=== PATIENT | male | born 1995 | race Two or more races ===

== ENCOUNTER 2016-11-25 14:51 | Emergency (ER) | payer MEDICAID ==
[2016-11-25 15:18] VITALS: BP 120/73
--- NOTE | 2016-11-25 15:56 | ER Document Report ---
HPI - HPI Pain Level: 5 Notes: Patient is a 21-year-old male who presents the ED for a wound recheck status post incision and drainage and packing 2 days ago by an outside provider. Patient states that he has yet to fill the antibiotic that he was prescribed. Patient states that he has noticed continued discharge from the site. He has been putting new wound dressings on there daily. The pain does not radiate otherwise. Patient is not sure if the area is improving or not. He has not noticed any red streaks. Denies any headache, fever, URI, sore throat, chest pain, palpitations, syncope, cough, shortness of breath, wheeze, dyspnea, abdominal pain, nausea/vomiting/diarrhea, urinary retention, dysuria. Patient denies any drug allergies or other significant past medical history. Denies any history of MRSA. - ROS Notes: REVIEW OF SYSTEMS: CONSTITUTIONAL : Denies fever, chills, or sweats. Denies recent illness. EENT: Denies eye, ear, throat, or mouth pain or symptoms. Denies nasal or sinus congestion or discharge. Denies throat, tongue, or mouth swelling or difficulty swallowing. CARDIOVASCULAR: Denies chest pain. Denies palpitations or racing or irregular heart beat. Denies ankle edema. RESPIRATORY: Denies cough, cold, or chest congestion. Denies shortness of breath, difficulty breathing, or wheezing. GASTROINTESTINAL: Denies abdominal pain or distention. Denies nausea, vomiting , or diarrhea. Denies blood in vomitus, stools, or per rectum. Denies black, tarry stools. Denies constipation. GENITOURINARY: Denies difficulty urinating, painful urination, burning, frequency, blood in urine, or discharge. MUSCULOSKELETAL: Denies back or neck pain or stiffness. Denies joint pain or swelling. SKIN: see hpi NEUROLOGICAL: Denies confusion or altered mental status. Denies passing out or loss of consciousness. Denies dizziness or lightheadedness. Denies headache. Denies weakness or paralysis or loss of use of either side. Denies problems with gait or speech. Denies sensory loss, numbness, or tingling. ALL OTHER SYSTEMS REVIEWED AND NEGATIVE. Dictation was performed using [employer] voice recognition software - DERM Skin Color: Normal Past Medical History - General Information source: Patient - Social History Smoking Status: Unknown if Ever Smoked Family History: None Patient has suicidal ideation: No Patient has homicidal ideation: No Renal/ Medical History: Denies: Hx Peritoneal Dialysis Vertical Provider Document - CONSTITUTIONAL Agree With Documented VS: Yes Notes: PHYSICAL EXAMINATION: GENERAL: Well-appearing, well-nourished and in no acute distress. LUNGS: Breath sounds clear to auscultation bilaterally and equal. No wheezes rales or rhonchi. HEART: Regular rate and rhythm without murmurs, rubs, gallops. Musculoskeletal: LE's b/l: FROM to passive/active. Strength 5+/5. Extremities: No cyanosis, clubbing, or edema b/l. Peripheral pulses 2+. Capillary refill less than 3 seconds. NEUROLOGICAL: Normal speech, normal gait. Normal sensory, motor exams PSYCH: Normal mood, normal affect. SKIN: Large open abscess (s/p I&D) to the rt lateral hip. Packing in place. Purulent discharge noted with erythema and swelling. + tenderness and induration. No streaks. - INFECTION CONTROL TRAVEL OUTSIDE OF THE [place] IN LAST 30 DAYS: No - RESPIRATORY O2 Sat by Pulse Oximetry: 98 Course - Re-evaluation Re-evalutation: 11/25/16 16:20 Patient is an afebrile, well-hydrated, 21-year-old male who presents to the ED for a wound recheck status post I&D of an abscess 2 days ago by an outside source. Vitals are stable. PE otherwise unremarkable. Patient has not been taking his antibiotics. A wound culture was obtained today after packing was removed. The wound was cleansed and irrigated. Iodoform was placed today. Advised patient that he needs to go fill his prescription for his antibiotic as directed. He will need another wound check in 2-3 days. Wound instructions reviewed. Recheck with your PCM in 2-3 days for that wound check. Return to the ED with any worsening/concerning symptoms otherwise as reviewed in discharge. Patient is in agreement. - Vital Signs Vital signs: Temp Pulse Resp BP Pulse Ox 98.5 F 58 L 16 120/73 98 11/25/16 15:15 11/25/16 15:15 11/25/16 15:15 11/25/16 15:15 11/25/16 15:15 Discharge - Discharge Clinical Impression: Encounter for wound re-check, Abscess Condition: Stable Disposition: HOME, SELF-CARE Instructions: Abscess ([facility]), Post Incision and Drainage Additional Instructions: You may shower but no submersion of the wound under water until wound is healed. Keep the original dressing on the wound for 24 hours unless the drainage soaks through. Change the dressing daily thereafter and use a small amount of triple antibiotic ointment over the open wound. Return to the ED and/ or your PCM in 2-3 days for recheck and continue direction for wound packing. Monitor for any signs of worsening pain or redness, streaks, and/or fever. Return to the ED if noticing any of the above symptoms or as needed. Take medications as directed. Referrals: [facility] [Provider Group] - Follow up as needed [facility] [Provider Group] - Follow up as needed
== END 2016-11-25 16:37 | disposition home or self-care (01) ==
LOC: ER 14:51
DX: L02.415 Cutaneous abscess of right lower limb (principal)
CPT/HCPCS: 99282; 87070; 87205; 87075; 87077; 87186; A6266